=== PATIENT | female | born 1985 | race Caucasian/White ===

== ENCOUNTER 2017-08-05 14:57 | Emergency (ER) | payer SELFPAY ==
[~2017-08-05] VITALS: Ht 177.8 cm; Wt 61.0 kg
[~2017-08-05 14:57] MED LIST: CHLO.12%30 SSP; MMW SSP; PENI500T PO; TRAM50 PO
[2017-08-05 14:58] VITALS: BP 120/83; PULSE 92; RESP 16; TEMP 98.2; O2SAT 100
[2017-08-05 15:35] LABS: BACTERIA, URINE OCC /hpf; BLOOD, URINE SMALL (NEG); COMMENT (UR) CULTURE INDICATED; CULTURE IF INDICATED CULTURE INDICATED; GLUCOSE,URINE NEG (NEG); KETONE, URINE NEG (NEG); NITRITE,URINE NEG (NEG); SQUAMOUS EPITHELIAL CELL URINE 1 /hpf (0-5); URINE COLOR YELLOW (YELLW/STRAW)
[2017-08-05] MEDS ORDERED: MACR100C2 PO (15:38)
[2017-08-05] MEDS ORDERED: PHEN0.4T PO (15:38)
--- NOTE | 2017-08-05 15:44 | PD ---
HPI Chief Complaint: Complaint Time Seen by Provider: 15:30 Travel History International Travel<30 days: No Contact w/Intl Traveler<30days: No Traveled to known affect area: No History of Present Illness HPI 32-year-old female here for evaluation of dysuria. Symptom onset 2 days ago. She reports a burning sensation when she urinates with associated suprapubic pressure. Denies flank pain, nausea or vomiting, fevers or chills. She has had UTIs in the past and this feels similar. She reports that her last menstrual period was 11 days ago. Denies vaginal bleeding or discharge. No other complaints at this time. PFSH Past Medical History Anemia: Yes Asthma: Yes Diminished Hearing: No Reproductive: Yes (ENDOMETRIOSIS) Migraines: Yes ?: Unknown LMP: 07/23/17 Past Surgical History Other Surgery: Yes (SINUS SX) Social History Alcohol Use: No Tobacco Use: Yes (2-3 cigarrettes a day) Substance Use: Yes (Marijuana) Allergies-Medications (Allergen,Severity, Reaction): Coded Allergies: No Known Allergies (Unverified , 05/11/14) Reported Meds & Prescriptions Reported Meds & Active Scripts Active Pyridium (Phenazopyridine HCl) 100 Mg Tab 100 Mg PO Q8HR 3 Days Macrobid (Nitrofurantoin Monoh/Nitrofur Macro) 100 Mg Cap 100 Mg PO BID 7 Days Magic Mouthwash-Diphenhy Formula (Lidocaine/Diphenhydr/Alum/Mg/Simeth) Ml 5-10 Ml SSP 5 TIMES A DAY MAGIC MOUTHWASH CONTAINS 1/3 VISCOUS LIDOCAINE, 1/3 MAALOX, AND 1/3 BENADRYL. Peridex Oral Rinse (Chlorhexidine Gluconate) 0.12 % Eden 15 Ml SSP TID 7 Days Ultram (Tramadol HCl) 50 Mg Tab 1 Tab PO Q6H PRN FOR PAIN Pen Vk (Penicillin V Potassium) 500 Mg Tab 500 Mg PO QID Review of Systems Except as stated in HPI: all other systems reviewed are Neg Physical Exam Narrative GENERAL: Well or stream in no acute distress SKIN: Warm and dry. HEAD: Atraumatic. Normocephalic. EYES: Pupils equal and round. No scleral icterus. No injection or drainage. ENT: No nasal bleeding or discharge. Mucous membranes pink and moist. NECK: Trachea midline. No JVD. CARDIOVASCULAR: Regular rate and rhythm. No murmur appreciated. RESPIRATORY: No accessory muscle use. Clear to auscultation. Breath sounds equal bilaterally. GASTROINTESTINAL: Abdomen soft, mild suprapubic tenderness without guarding, no CVA tenderness MUSCULOSKELETAL: No obvious deformities. NEUROLOGICAL: Awake and alert. No obvious cranial nerve deficits. Motor grossly within normal limits. Normal speech. PSYCHIATRIC: Appropriate mood and affect; insight and judgment normal. Data Data Last Documented VS Vital Signs Date Time Temp Pulse Resp B/P (MAP) Pulse Ox O2 Delivery O2 Flow Rate FiO2 08/05/17 14:58 98.2 92 16 120/83 (95) 100 Room Air Orders Orders Urinalysis - C+S If Indicated (08/05/17 15:10) Urine Culture (08/05/17 15:15) Labs Laboratory Tests Test 08/05/17 15:15 Urine Color YELLOW Urine Turbidity CLOUDY Urine pH 6.0 Urine Specific [place] 1.019 Urine Protein TRACE mg/dL Urine Glucose (UA) NEG mg/dL Urine Ketones NEG mg/dL Urine Occult Blood SMALL Urine Nitrite NEG Urine Bilirubin NEG Urine Urobilinogen LESS THAN 2.0 MG/DL Urine Leukocyte Esterase LARGE Urine RBC 10 /hpf Urine WBC /hpf Urine Squamous Epithelial Cells 1 /hpf Urine Amorphous Sediment RARE Urine Bacteria OCC /hpf Microscopic Urinalysis Comment CULTURE INDICATED MDM Medical Decision Making Medical Screen Exam Complete: Yes Emergency Medical Condition: Yes Medical Record Reviewed: Yes Differential Diagnosis Cystitis, pyelonephritis, urethritis, PID, tubo-ovarian abscess Narrative Course The patient's symptoms and history are consistent with urinary tract infection. Urinalysis was sent in triage however a urine test was not performed. The patient is declining urine test at this time. She reports that her last menstrual period was 11 days ago. She is being discharged with Macrobid and Pyridium. Diagnosis Primary Impression: Urinary tract infection Qualified Codes: N30.01 - Acute cystitis with hematuria Additional Instructions: Medication as prescribed. Stay well hydrated well-nourished, follow-up with primary care, return for any emergent medical conditions. Med/Other Pt SpecificInfo: Prescription(s) given Scripts Phenazopyridine (Pyridium) 100 Mg Tab 100 MG PO Q8HR for Dysuria for 3 Days, TAB 0 Refills Prov: Marilee Jimenez DO 08/05/17 Nitrofurantoin Monohydrate Macrocrystals (Macrobid) 100 Mg Cap 100 MG PO BID for Infection for 7 Days, #14 CAP 0 Refills Prov: Marilee Jimenez 08/05/17 Disposition: 01 DISCHARGE HOME Condition: Stable Jose Traylor Aug 05, 2017 15:44
== END 2017-08-05 16:51 | disposition home or self-care (01) ==
LOC: NEPD 14:57
DX: N30.01 Acute cystitis with hematuria (principal); B96.20 Unspecified Escherichia coli [E. coli] as the cause of diseases classified elsewhere; F17.210 Nicotine dependence, cigarettes, uncomplicated
CPT/HCPCS: 81001; 87077; 87086; 87186; 99284

== ENCOUNTER 2017-09-14 10:41 | Emergency (ER) | payer MEDICAID ==
[~2017-09-14] VITALS: Ht 177.8 cm; Wt 70.0 kg
[~2017-09-14 10:41] MED LIST changes: +MACR100C2 PO; +PHEN0.4T PO
[2017-09-14 10:42] VITALS: BP 138/73; PULSE 89; RESP 20; TEMP 98.2; O2SAT 100
[2017-09-14 11:14] LABS: BACTERIA, URINE OCC /hpf; BLOOD, URINE NEG (NEG); COMMENT (UR) CULTURE INDICATED; CULTURE IF INDICATED CULTURE INDICATED; GLUCOSE,URINE NEG (NEG); KETONE, URINE NEG (NEG); NITRITE,URINE NEG (NEG); SQUAMOUS EPITHELIAL CELL URINE 1 /hpf (0-5); URINE COLOR LIGHT-YELLOW (YELLW/STRAW)
[2017-09-14] MEDS ORDERED: CEPH-460 PO (11:35)
[2017-09-14] MEDS ORDERED: PHEN0.4T PO (11:36)
--- NOTE | 2017-09-14 11:37 | PD ---
HPI Chief Complaint: Complaint Time Seen by Provider: 11:34 Travel History International Travel<30 days: No Contact w/Intl Traveler<30days: No Traveled to known affect area: No History of Present Illness HPI 32-year-old female presents emergency Department with complaint of urinary frequency, urgency, hesitancy, dysuria 3-4 days. Reports being treated for urinary tract infection about a month ago here at [place]. Reports bladder tenderness and pressure. Denies low back pain. Denies fever, vomiting. Denies abdominal pain. Denies vaginal discharge, odor, itch. Last menstrual period at the end of August. Has been taking Azo for symptom management. Symptoms are moderate in severity. Describes as a pressure. No known relieving or aggravating factors. No known allergies. Has no medical complaints. No other modifying factors or associated signs and symptoms. PFSH Past Medical History Anemia: Yes Asthma: Yes Diminished Hearing: No Reproductive: Yes (ENDOMETRIOSIS) Migraines: Yes ?: Unknown LMP: 08/13/17 Past Surgical History Other Surgery: Yes (SINUS SX) Social History Alcohol Use: No Tobacco Use: Yes (2-3 cigarrettes a day) Substance Use: Yes (Marijuana) Allergies-Medications (Allergen,Severity, Reaction): Coded Allergies: No Known Allergies (Verified Adverse Reaction, Unknown, 09/14/17) Reported Meds & Prescriptions Reported Meds & Active Scripts Active Pyridium (Phenazopyridine HCl) 100 Mg Tab 100 Mg PO Q8H PRN 3 Days Keflex (Cephalexin) 500 Mg Cap 500 Mg PO Q12H 7 Days Pyridium (Phenazopyridine HCl) 100 Mg Tab 100 Mg PO Q8HR 3 Days Macrobid (Nitrofurantoin Monoh/Nitrofur Macro) 100 Mg Cap 100 Mg PO BID 7 Days Magic Mouthwash-Diphenhy Formula (Lidocaine/Diphenhydr/Alum/Mg/Simeth) Ml 5-10 Ml SSP 5 TIMES A DAY MAGIC MOUTHWASH CONTAINS 1/3 VISCOUS LIDOCAINE, 1/3 MAALOX, AND 1/3 BENADRYL. Peridex Oral Rinse (Chlorhexidine Gluconate) 0.12 % Eden 15 Ml SSP TID 7 Days Ultram (Tramadol HCl) 50 Mg Tab 1 Tab PO Q6H PRN FOR PAIN Pen Vk (Penicillin V Potassium) 500 Mg Tab 500 Mg PO QID Review of Systems Except as stated in HPI: all other systems reviewed are Neg Physical Exam Narrative GENERAL: Well-nourished, well-developed female patient, in no acute distress; afebrile, nontoxic-appearing SKIN: Warm and dry. No rash. HEAD: Atraumatic. Normocephalic. EYES: Pupils equal and round. No scleral icterus. No injection or drainage. ENT: Mucosa pink and moist. NECK: Trachea midline. CARDIOVASCULAR: Regular rate. RESPIRATORY: No accessory muscle use. GASTROINTESTINAL: Abdomen soft, non-tender, nondistended. Hepatic and splenic margins not palpable. Bowel sounds are active 4 quadrants. Bladder nondistended with tenderness on palpation. MUSCULOSKELETAL: No obvious deformities. No clubbing. No cyanosis. No edema. BACK: Bilateral CVA tenderness NEUROLOGICAL: Awake and alert. Oriented 3. No obvious cranial nerve deficits. Motor grossly within normal limits. Normal speech. Moves all extremities. 5/5 strength to all extremities. PSYCHIATRIC: Appropriate mood and affect; insight and judgment normal. Data Data Last Documented VS Vital Signs Date Time Temp Pulse Resp B/P (MAP) Pulse Ox O2 Delivery O2 Flow Rate FiO2 09/14/17 11:49 09/14/17 10:42 98.2 89 20 100 Orders Orders Urinalysis - C+S If Indicated (09/14/17 10:45) Ed Urine Pregnancytest Poc (09/14/17 10:45) Urine Culture (09/14/17 10:50) Ed Discharge Order (09/14/17 11:45) Gc And Chlamydia Pcr (09/14/17 11:47) Lidocaine 1% Inj (50 Ml) (Xylocaine 1% I (09/14/17 12:00) Ceftriaxone Inj (Rocephin Inj) (09/14/17 12:00) Labs Laboratory Tests Test 09/14/17 10:50 Urine Color LIGHT-YELLOW Urine Turbidity CLEAR Urine pH 7.0 Urine Specific [place] 1.005 Urine Protein NEG mg/dL Urine Glucose (UA) NEG mg/dL Urine Ketones NEG mg/dL Urine Occult Blood NEG Urine Nitrite NEG Urine Bilirubin NEG Urine Urobilinogen LESS THAN 2.0 MG/DL Urine Leukocyte Esterase LARGE Urine RBC 1 /hpf Urine WBC 57 /hpf Urine Squamous Epithelial Cells 1 /hpf Urine Bacteria OCC /hpf Microscopic Urinalysis Comment CULTURE INDICATED MDM Medical Decision Making Medical Screen Exam Complete: Yes Emergency Medical Condition: Yes Medical Record Reviewed: Yes Differential Diagnosis Cystitis, UTI, pyelonephritis Narrative Course 32-year-old female with urinalysis with signs of infection. Urine culture pending. Patient was treated for UTI on August 05. She has bilateral CVA tenderness. Denies vaginal discharge. Patient is afebrile and nontoxic brain. Denies fever, vomiting. Rocephin 1 g IM administered in the ER. Urine chlamydia and gonorrhea ordered and pending. Keflex and Pyridium prescribed for home. Instructed patient to follow up with primary care provider. Patient verbalizes understanding and agreement with treatment plan. Patient is medically cleared and stable for discharge. Discussed reasons to return to the emergency department. Patient agrees with treatment plan. The patients vital signs are stable and the patient is stable for outpatient follow-up and treatment. Patient discharged home, stable and in no acute distress. Diagnosis Primary Impression: UTI (urinary tract infection) Qualified Codes: N39.0 - Urinary tract infection, site not specified Referrals: [facility] Primary Care Physician Patient Instructions: General Instructions, Urinary Tract Infection in Women ( ED) Departure Forms: Tests/Procedures, Work Release Enter return to work date: Sep 15, 2017 Additional Instructions: Take antibiotics as prescribed and complete full course Take Pyridium for bladder spasms: Pyridium will turn your urine bright orange Drink plenty of fluids Maintain good personal hygiene Follow-up with primary care provider Return to the emergency department immediately with worsening of symptoms Med/Other Pt SpecificInfo: Prescription(s) given Scripts Phenazopyridine (Pyridium) 100 Mg Tab 100 MG PO Q8H Y for DYSURIA for 3 Days, #9 TAB 0 Refills Prov: Annabel Brown 09/14/17 Cephalexin (Keflex) 500 Mg Cap 500 MG PO Q12H for Infection for 7 Days, #14 CAP 0 Refills Prov: Annabel Brown 09/14/17 Disposition: 01 DISCHARGE HOME Condition: Stable Annabel Brown Sep 14, 2017 11:37
[2017-09-14] MEDS ORDERED: LIDOCAINE HCL 1% 50 ML VIAL IM ONE (12:00)
[2017-09-15 00:13] LABS: CHLAMYDIA PCR NOT DETECTED (NOT DETECT); NEISSERIA PCR NOT DETECTED (NOT DETECT)
== END 2017-09-14 12:43 | disposition home or self-care (01) ==
LOC: NEPK 10:41
DX: N39.0 Urinary tract infection, site not specified (principal); F17.210 Nicotine dependence, cigarettes, uncomplicated
CPT/HCPCS: 81001; 84703; 87086; 87491; 87591; 96372; 99284; J0696

== ENCOUNTER 2017-10-04 19:23 | Emergency (ER) | payer MEDICAID ==
[~2017-10-04 19:23] MED LIST changes: +CEPH-460 PO
[2017-10-04 19:24] VITALS: BP 130/95; PULSE 104; RESP 16; TEMP 98.7; O2SAT 100
--- NOTE | 2017-10-04 21:24 | PD ---
HPI Chief Complaint: Bleeding Time Seen by Provider: 21:09 Travel History International Travel<30 days: No Contact w/Intl Traveler<30days: No Traveled to known affect area: No History of Present Illness HPI 33-year-old female presents to the emergency department for evaluation of lower abdominal cramping, menstrual bleeding. Patient states she was diagnosed the urinary tract infection here on September 14. She states that since then she has had some intermittent vaginal spotting. However, approximately 3 days ago, she started with heavier vaginal bleeding. She states she is going to 3 pads a day which is abnormal for her. Patient reports history of endometriosis. She is unsure she could be . Patient denies any abnormal vaginal discharge risk of STDs. She's not currently on any prescribed medications. Moderate severity. No exacerbating or alleviating factors. PFSH Past Medical History Anemia: Yes Asthma: Yes Diminished Hearing: No Reproductive: Yes (ENDOMETRIOSIS) Migraines: Yes ?: Unknown Past Surgical History Other Surgery: Yes (SINUS SX) Social History Alcohol Use: No Tobacco Use: Yes (2-3 cigarrettes a day) Substance Use: Yes (Marijuana) Allergies-Medications (Allergen,Severity, Reaction): Coded Allergies: No Known Allergies (Verified Adverse Reaction, Unknown, 10/04/17) Reported Meds & Prescriptions Reported Meds & Active Scripts Active No Active Prescriptions or Reported Medications Review of Systems Except as stated in HPI: all other systems reviewed are Neg Physical Exam Narrative GENERAL: Well-nourished, well-developed female patient, afebrile. SKIN: Focused skin assessment warm/dry. HEAD: Normocephalic. Atraumatic. EYES: No scleral icterus. No injection or drainage. NECK: Supple, trachea midline. No JVD or lymphadenopathy. CARDIOVASCULAR: Regular rate and rhythm without murmurs, gallops, or rubs. RESPIRATORY: Breath sounds equal bilaterally. No accessory muscle use. Lungs sounds are clear to auscultation. GASTROINTESTINAL: Abdomen soft, non-tender, nondistended. MUSCULOSKELETAL: No cyanosis, or edema. BACK: Nontender without obvious deformity. No CVA tenderness. Data Data Last Documented VS Vital Signs Date Time Temp Pulse Resp B/P (MAP) Pulse Ox O2 Delivery O2 Flow Rate FiO2 10/04/17 19:24 98.7 104 16 130/95 (107) 100 Room Air Orders Orders Complete Blood Count With Diff (10/04/17 21:20) Basic Metabolic Panel (Bmp) (10/04/17 21:20) Gc And Chlamydia Pcr (10/04/17 21:20) Wet Prep Profile (10/04/17 21:20) Urinalysis - C+S If Indicated (10/04/17 21:20) Iv Access Insert/Monitor (10/04/17 21:20) Ed Urine Pregnancytest Poc (10/04/17 21:20) Sodium Chlor 0.9% 1000 Ml Inj (Ns 1000 M (10/04/17 21:30) Ketorolac Inj (Toradol Inj) (10/04/17 22:15) Labs Laboratory Tests Test 10/04/17 22:00 10/04/17 22:30 White Blood Count 6.2 TH/MM3 Red Blood Count 3.99 MIL/MM3 Hemoglobin 11.9 GM/DL Hematocrit 35.6 % Mean Corpuscular Volume 89.3 FL Mean Corpuscular Hemoglobin 29.8 PG Mean Corpuscular Hemoglobin Concent 33.3 % Red Cell Distribution Width 14.1 % Platelet Count 257 TH/MM3 Mean Platelet Volume 8.7 FL Neutrophils (%) (Auto) 40.4 % Lymphocytes (%) (Auto) 46.4 % Monocytes (%) (Auto) 6.5 % Eosinophils (%) (Auto) 5.3 % Basophils (%) (Auto) 1.4 % Neutrophils # (Auto) 2.5 TH/MM3 Lymphocytes # (Auto) 2.9 TH/MM3 Monocytes # (Auto) 0.4 TH/MM3 Eosinophils # (Auto) 0.3 TH/MM3 Basophils # (Auto) 0.1 TH/MM3 CBC Comment DIFF FINAL Differential Comment Urine Color YELLOW Urine Turbidity CLEAR Urine pH 7.0 Urine Specific [place] 1.022 Urine Protein NEG mg/dL Urine Glucose (UA) NEG mg/dL Urine Ketones NEG mg/dL Urine Occult Blood LARGE Urine Nitrite NEG Urine Bilirubin NEG Urine Urobilinogen LESS THAN 2.0 MG/DL Urine Leukocyte Esterase NEG Urine RBC 1 /hpf Urine WBC 1 /hpf Urine Squamous Epithelial Cells 1 /hpf Urine Bacteria RARE /hpf Urine Mucus FEW /lpf Microscopic Urinalysis Comment CULT NOT INDICATED Blood Urea Nitrogen 15 MG/DL Creatinine 0.73 MG/DL Random Glucose 87 MG/DL Calcium Level 8.6 MG/DL Sodium Level 138 MEQ/L Potassium Level 4.0 MEQ/L Chloride Level 105 MEQ/L Carbon Dioxide Level 29.6 MEQ/L Anion Gap 3 MEQ/L Estimat Glomerular Filtration Rate 91 ML/MIN Clue Cells (Wet Prep) NONE SEEN Vaginal Trichomonas (Wet Prep) NONE SEEN Vaginal Yeast (Wet Prep) NONE SEEN MDM Medical Decision Making Medical Screen Exam Complete: Yes Emergency Medical Condition: Yes Medical Record Reviewed: Yes Differential Diagnosis Dysmenorrhea versus anemia versus cervicitis versus UTI Narrative Course 32-year-old female presents to the emergency department for evaluation of abdominal cramping, menstrual bleeding. Patient appears well on exam. CBC, BMP , UA, urine test are ordered and pending. Pelvic exam for GC/ chlamydia, wet prep will be done. Patient is given normal saline 1 L IV bolus, Toradol 30 mg IV. UPT is negative. UA is negative for infection. CBC shows no acute abnormality. BMP shows no acute abnormality. Wet prep is negative. Patient is instructed to follow-up with [facility]. She'll be given the information for the [facility]. Patient will be discharged with a prescription for ibuprofen. The patient was discharged in stable condition with instructions, including return instructions and follow up instructions. Diagnosis Primary Impression: Dysmenorrhea Referrals: [facility] call for appointment Patient Instructions: Dysmenorrhea (ED), General Instructions Additional Instructions: Take ibuprofen as instructed as needed with food for pain. Follow-up at [facility]. Return to the emergency department for any acute worsening of symptoms. Med/Other Pt SpecificInfo: Prescription(s) given Scripts Ibuprofen (Ibuprofen) 600 Mg Tab 600 MG PO TID Y for PAIN SCALE 1 TO 10, #21 TAB 0 Refills Prov: Jo Ann Klein 10/04/17 Disposition: 01 DISCHARGE HOME Condition: Stable Jo Ann Klein Oct 04, 2017 21:24
[2017-10-04] MEDS ORDERED: SODIUM CHLOR 0.9% 1000 ML INJ 1,000 ML IV ONE (21:30)
[2017-10-04 22:15] VITALS: BP 139/92; PULSE 90; RESP 16; O2SAT 99
[2017-10-04] MEDS ORDERED: KETOROLAC TROMETHAMINE 30 MG/ML (IVP) VIAL IV PUSH ONE (22:15)
[2017-10-04 22:23] LABS: AUTOMATED NEUTROPHIL # 2.5 TH/MM3 (1.8-7.7); BASOPHIL # 0.1 TH/MM3 (0-0.2); BASOPHIL % 1.4 % (0.0-2.0); EOSINOPHIL # 0.3 TH/MM3 (0-0.4); EOSINOPHIL % 5.3 % (0.0-4.0); HEMATOCRIT 35.6 % (35.0-46.0); HEMO FLAGS DIFF FINAL; LYMPH % 46.4 % (9.0-44.0); LYMPHOCYTE # 2.9 TH/MM3 (1.0-4.8); MEAN CELL VOLUME 89.3 FL (80.0-100.0); MEAN CORPUSCULAR HEMOGLOBIN 29.8 PG (27.0-34.0); MEAN CORPUSCULAR HGB CONC 33.3 % (32.0-36.0); MONO % 6.5 % (0.0-8.0); NEUT % 40.4 % (16.0-70.0); PLATELET COUNT 257 TH/MM3 (150-450); RED BLOOD COUNT 3.99 MIL/MM3 (4.00-5.30); RED CELL DISTRIBUTION WIDTH 14.1 % (11.6-17.2); WHITE BLOOD COUNT 6.2 TH/MM3 (4.0-11.0)
[2017-10-04 22:27] LABS: BACTERIA, URINE RARE /hpf; BLOOD, URINE LARGE (NEG); COMMENT (UR) CULT NOT INDICATED; CULTURE IF INDICATED CULT NOT INDICATED; GLUCOSE,URINE NEG (NEG); KETONE, URINE NEG (NEG); MUCUS URINE FEW /lpf (OCC); NITRITE,URINE NEG (NEG); SQUAMOUS EPITHELIAL CELL URINE 1 /hpf (0-5); URINE COLOR YELLOW (YELLW/STRAW)
[2017-10-04 22:37] LABS: BICARBONATE 29.6 MEQ/L (21.0-32.0)
[2017-10-04] MEDS ORDERED: IBUP-232 PO (22:56)
[2017-10-04 23:17] VITALS: BP 126/88; PULSE 89; RESP 14; O2SAT 100
[2017-10-05 01:08] LABS: CHLAMYDIA PCR NOT DETECTED (NOT DETECT); NEISSERIA PCR NOT DETECTED (NOT DETECT)
== END 2017-10-04 23:30 | disposition home or self-care (01) ==
LOC: NEPC 19:23
DX: N94.6 Dysmenorrhea, unspecified (principal); Z72.0 Tobacco use; Z86.2 Personal history of diseases of the blood and blood-forming organs and certain disorders involving the immune mechanism; Z87.09 Personal history of other diseases of the respiratory system; Z87.42 Personal history of other diseases of the female genital tract; Z86.69 Personal history of other diseases of the nervous system and sense organs
CPT/HCPCS: 80048; 81001; 84703; 85025; 87210; 87491; 87591; 96361; 96374; 99284; J1885; J7030

== ENCOUNTER 2017-10-29 16:37 | Emergency (ER) | payer MEDICAID ==
[~2017-10-29 16:37] MED LIST changes: -CEPH-460 PO; -CHLO.12%30 SSP; +IBUP-232 PO; -MACR100C2 PO; -MMW SSP; -PENI500T PO; -PHEN0.4T PO; -TRAM50 PO
[2017-10-29 16:40] VITALS: BP 118/68; PULSE 109; RESP 16; TEMP 99; O2SAT 100
[2017-10-29 17:25] LABS: AMORPHOUS SEDIMENT, URINE RARE; BACTERIA, URINE FEW /hpf; BILIRUBIN, URINE NEG (NEG); BLOOD, URINE SMALL (NEG); GLUCOSE,URINE NEG (NEG); KETONE, URINE NEG (NEG); MUCUS URINE FEW /lpf (OCC); NITRITE,URINE NEG (NEG); PH, URINE 5.5 (5.0-8.5); RENAL EPITHELIAL CELLS 1 /hpf; SQUAMOUS EPITHELIAL CELL URINE 7 /hpf (0-5); URINE COLOR YELLOW (YELLW/STRAW); URINE LEUKOCYTE ESTERASE LARGE (NEG); WHITE BLOOD CELL CLUMPS OCC
[2017-10-29] MEDS ORDERED: PHEN0.4T PO (17:49)
[2017-10-29] MEDS ORDERED: IBUP1TAB7 PO (17:49)
[2017-10-29] MEDS ORDERED: CEPH-460 PO (17:49)
--- NOTE | 2017-10-29 17:49 | PD ---
HPI Chief Complaint: Complaint Time Seen by Provider: 17:47 Travel History International Travel<30 days: No Contact w/Intl Traveler<30days: No Traveled to known affect area: No History of Present Illness HPI 32-year-old female presents to the emergency department complaining of dysuria and urinary frequency 4 days. Reports urine is concentrated. Denies hematuria. Denies vaginal discharge, odor. Reports pain directly over her bladder. Denies fever, vomiting. Reports bilateral lower back pain. Has not taken any medication or tried any treatments to alleviate her symptoms. Rates pain 7/10. Describes it as a pressure. Worse with urination. No known relieving factors. Reports history of frequent urinary tract infections. Does not have an established primary care provider. No known allergies. Has no other medical complaints. No other modifying factors or associated signs and symptoms. PFSH Past Medical History Anemia: Yes Asthma: Yes Diminished Hearing: No Reproductive: Yes (ENDOMETRIOSIS) Migraines: Yes ?: Unknown LMP: 09/27/2017 Past Surgical History Other Surgery: Yes (SINUS SX) Social History Alcohol Use: No Tobacco Use: Yes (2-3 cigarrettes a day) Substance Use: Yes (Marijuana) Allergies-Medications (Allergen,Severity, Reaction): Coded Allergies: No Known Allergies (Verified Adverse Reaction, Unknown, 10/04/17) Reported Meds & Prescriptions Reported Meds & Active Scripts Active Ibuprofen 800 Mg Tab 800 Mg PO Q6HR PRN Keflex (Cephalexin) 500 Mg Cap 500 Mg PO Q12H 7 Days Pyridium (Phenazopyridine HCl) 100 Mg Tab 100 Mg PO Q8H PRN 3 Days Ibuprofen 600 Mg Tab 600 Mg PO TID PRN Review of Systems Except as stated in HPI: all other systems reviewed are Neg Physical Exam Narrative GENERAL: Well-nourished, well-developed female patient, in no acute distress SKIN: Warm and dry. No rash. HEAD: Atraumatic. Normocephalic. EYES: Pupils equal and round. No scleral icterus. No injection or drainage. ENT: Mucosa pink and moist. NECK: Trachea midline. CARDIOVASCULAR: Regular rate and rhythm. No murmur appreciated. RESPIRATORY: No accessory muscle use. Clear to auscultation. Breath sounds equal bilaterally. GASTROINTESTINAL: Abdomen soft, non-tender, nondistended. Hepatic and splenic margins not palpable. Bowel sounds are active 4 quadrants. Bladder tender and nondistended. MUSCULOSKELETAL: No obvious deformities. No clubbing. No cyanosis. No edema. BACK: Bilateral CVA tenderness; worse on left than right NEUROLOGICAL: Awake and alert. Oriented 3. No obvious cranial nerve deficits. Motor grossly within normal limits. Normal speech. Moves all extremities. 5/5 strength to all extremities. PSYCHIATRIC: Appropriate mood and affect; insight and judgment normal. Data Data Last Documented VS Vital Signs Date Time Temp Pulse Resp B/P (MAP) Pulse Ox O2 Delivery O2 Flow Rate FiO2 10/29/17 16:40 99.0 109 16 118/68 (85) 100 Room Air Orders Orders Urinalysis - C+S If Indicated (10/29/17 16:42) Ed Urine Pregnancytest Poc (10/29/17 16:42) Gc And Chlamydia Pcr (10/29/17 16:42) Urine Culture (10/29/17 16:45) Lidocaine 1% Inj (50 Ml) (Xylocaine 1% I (10/29/17 18:00) Ceftriaxone Inj (Rocephin Inj) (10/29/17 18:00) Ketorolac Inj (Toradol Inj) (10/29/17 18:00) Ed Discharge Order (10/29/17 17:54) Labs Laboratory Tests Test 10/29/17 16:45 Urine Color YELLOW Urine Turbidity CLOUDY Urine pH 5.5 Urine Specific [place] 1.023 Urine Protein 30 mg/dL Urine Glucose (UA) NEG mg/dL Urine Ketones NEG mg/dL Urine Occult Blood SMALL Urine Nitrite NEG Urine Bilirubin NEG Urine Urobilinogen LESS THAN 2.0 MG/DL Urine Leukocyte Esterase LARGE Urine RBC 14 /hpf Urine WBC /hpf Urine WBC Clumps OCC Urine Squamous Epithelial Cells 7 /hpf Urine Renal Epithelial Cells 1 /hpf Urine Amorphous Sediment RARE Urine Bacteria FEW /hpf Urine Mucus FEW /lpf Microscopic Urinalysis Comment CULTURE INDICATED MDM Medical Decision Making Medical Screen Exam Complete: Yes Emergency Medical Condition: Yes Medical Record Reviewed: Yes Differential Diagnosis UTI, pyelonephritis, cystitis Narrative Course 32-year-old female urinalysis is signs of infection. Chlamydia and gonorrhea ordered in triage and is pending. Patient has bilateral CVA tenderness. Afebrile and nontoxic-appearing. Denies fever, vomiting. Patient has frequent urinary tract infections. Toradol and Rocephin administered in the ER. Keflex , Pyridium, ibuprofen prescribed for home. Instructed patient to follow up with primary care provider. Patient verbalizes understanding and agreement with treatment plan. Patient is medically cleared and stable for discharge. Discussed reasons to return to the emergency department. Patient agrees with treatment plan. The patients vital signs are stable and the patient is stable for outpatient follow-up and treatment. Patient discharged home, stable and in no acute distress. Diagnosis Primary Impression: UTI (urinary tract infection) Qualified Codes: N39.0 - Urinary tract infection, site not specified Referrals: [facility] Primary Care Physician Patient Instructions: General Instructions, Urinary Tract Infection in Women ( ED) Additional Instructions: Take antibiotics as prescribed and complete full course Take Pyridium for bladder spasms: Pyridium will turn your urine bright orange Drink plenty of fluids Maintain good personal hygiene Follow-up with primary care provider Return to the emergency department immediately with worsening of symptoms Med/Other Pt SpecificInfo: Prescription(s) given Scripts Ibuprofen (Ibuprofen) 800 Mg Tab 800 MG PO Q6HR Y for PAIN, #30 TAB 0 Refills Prov: Annabel Brown 10/29/17 Cephalexin (Keflex) 500 Mg Cap 500 MG PO Q12H for Infection for 7 Days, #14 CAP 0 Refills Prov: Annabel Brown 10/29/17 Phenazopyridine (Pyridium) 100 Mg Tab 100 MG PO Q8H Y for DYSURIA for 3 Days, #9 TAB 0 Refills Prov: Annabel Brown 10/29/17 Disposition: 01 DISCHARGE HOME Condition: Stable Annabel Brown Oct 29, 2017 17:49
[2017-10-29] MEDS ORDERED: KETOROLAC TROMETHAMINE 60 MG/2 ML (IM) VIAL IM ONE (18:00)
[2017-10-29] MEDS ORDERED: LIDOCAINE HCL 1% 50 ML VIAL IM ONE (18:00)
== END 2017-10-29 18:39 | disposition home or self-care (01) ==
LOC: NEPD 16:37
DX: N39.0 Urinary tract infection, site not specified (principal); B96.20 Unspecified Escherichia coli [E. coli] as the cause of diseases classified elsewhere; F17.210 Nicotine dependence, cigarettes, uncomplicated
CPT/HCPCS: 81001; 84703; 87077; 87086; 87186; 87491; 87591; 96372; 99284; J0696; J1885

== ENCOUNTER 2017-11-30 00:15 | Emergency (ER) | payer MEDICAID ==
[~2017-11-30] VITALS: Ht 180.3 cm; Wt 64.9 kg
[~2017-11-30 00:15] MED LIST changes: +CEPH-460 PO; +IBUP1TAB7 PO; +PHEN0.4T PO
[2017-11-30 00:20] VITALS: PULSE 105; RESP 18; TEMP 98.2; O2SAT 100
[2017-11-30 00:27] VITALS: BP 130/88
[2017-11-30 00:45] LABS: BILIRUBIN, URINE NEG (NEG); BLOOD, URINE SMALL (NEG); GLUCOSE,URINE NEG (NEG); KETONE, URINE TRACE mg/dL (NEG); NITRITE,URINE NEG (NEG); URINE LEUKOCYTE ESTERASE LARGE (NEG)
[2017-11-30 01:00] LABS: URINE COLOR YELLOW (YELLW/STRAW)
[2017-11-30 01:01] LABS: WBC, URINE 100-200 /hpf (0-5); WHITE BLOOD CELL CLUMPS MOD
[2017-11-30] MEDS ORDERED: CIPR-9 PO (02:27)
--- NOTE | 2017-11-30 02:29 | PD ---
HPI Chief Complaint: Complaint Time Seen by Provider: 02:18 Travel History International Travel<30 days: No Contact w/Intl Traveler<30days: No Traveled to known affect area: No History of Present Illness HPI The patient is a 32-year-old female that complains of frequency, dysuria and urgency for the last few days. She gets frequent urinary tract infections. She was on Keflex for 29 October 2 the third of this month. She also uses Azo and Pyridium. She prefers Azo since it is less expensive. She denies any fever , nausea, vomiting and has only very minimal flank pain. She states there is no possibility of . PFSH Past Medical History Anemia: Yes Asthma: Yes Diminished Hearing: No Genitourinary: Yes (FREQUENT UTI'S) Reproductive: Yes (ENDOMETRIOSIS) Migraines: Yes Tetanus Vaccination: < 5 Years Influenza Vaccination: No ?: Not LMP: 11/13/17 Past Surgical History Other Surgery: Yes (SINUS SX) Social History Alcohol Use: No Tobacco Use: Yes (2-3 cigarrettes a day) Substance Use: Yes (Marijuana) Allergies-Medications (Allergen,Severity, Reaction): Coded Allergies: No Known Allergies (Verified Adverse Reaction, Unknown, 10/04/17) Reported Meds & Prescriptions Reported Meds & Active Scripts Active No Active Prescriptions or Reported Medications Review of Systems Except as stated in HPI: all other systems reviewed are Neg Physical Exam Narrative GENERAL: The patient is alert, oriented 3 and minimal apparent distress with her urinary symptoms. Her vital signs show heart rate of 105 but otherwise normal. SKIN: Focused skin assessment warm/dry. HEAD: Atraumatic. Normocephalic. EYES: Pupils equal and round. No scleral icterus. No injection or drainage. ENT: No nasal bleeding or discharge. Mucous membranes pink and moist. NECK: Trachea midline. No JVD. CARDIOVASCULAR: Regular rate and rhythm. No murmur appreciated. RESPIRATORY: No accessory muscle use. Clear to auscultation. Breath sounds equal bilaterally. GASTROINTESTINAL: Abdomen soft, with tenderness to direct palpation in the midline suprapubic area, nondistended. Hepatic and splenic margins not palpable. No guarding or rebound is present. The patient has only extremely minimal tenderness over the bilateral flanks. MUSCULOSKELETAL: No obvious deformities. No clubbing. No cyanosis. No edema. NEUROLOGICAL: Awake and alert. No obvious cranial nerve deficits. Motor grossly within normal limits. Normal speech. PSYCHIATRIC: Appropriate mood and affect; insight and judgment normal. Data Data Last Documented VS Vital Signs Date Time Temp Pulse Resp B/P (MAP) Pulse Ox O2 Delivery O2 Flow Rate FiO2 11/30/17 00:27 130/88 (102) 11/30/17 00:20 98.2 105 18 100 Orders Orders Urinalysis - C+S If Indicated (11/30/17 00:22) Ed Urine Pregnancytest Poc (11/30/17 00:22) Urine Culture (11/30/17 00:35) Labs Laboratory Tests Test 11/30/17 00:35 Urine Color YELLOW Urine Turbidity CLOUDY Urine pH 6.0 Urine Specific [place] 1.022 Urine Protein TRACE mg/dL Urine Glucose (UA) NEG mg/dL Urine Ketones TRACE mg/dL Urine Occult Blood SMALL Urine Nitrite NEG Urine Bilirubin NEG Urine Leukocyte Esterase LARGE Urine RBC 4-9 /hpf Urine WBC 100-200 /hpf Urine WBC Clumps MOD Urine Squamous Epithelial Cells 6-8 /hpf Microscopic Urinalysis Comment CULTURE INDICATED MDM Medical Decision Making Medical Screen Exam Complete: Yes Emergency Medical Condition: Yes Medical Record Reviewed: Yes Interpretation(s) The urine shows cloudy turbidity, trace ketones, small blood, large leukocyte Estrace with 102 100 white cells and moderate white cell clumping's and culture is indicated. The urine test is negative. Differential Diagnosis Cystitis, pyelonephritis, interstitial cystitis, PID Narrative Course The patient does not have the symptoms of pyelonephritis. She does have symptoms of cystitis and will be given Cipro. She has no insurance and needs something free/inexpensive at [facility]. Diagnosis Primary Impression: Cystitis Additional Instructions: The Cipro is one tablet twice daily for 10 days. Drink plenty of liquids to establish a good urine flow across your kidneys. We recommend a urologist to follow up with because of the frequency of your urinary infections. Med/Other Pt SpecificInfo: Prescription(s) given Scripts Ciprofloxacin (Cipro) 500 Mg Tab 500 MG PO BID for Infection for 10 Days, #20 TAB 0 Refills Prov: Andreas Vallecillo MD 11/30/17 Disposition: 01 DISCHARGE HOME Condition: Stable Andreas Vallecillo MD Nov 30, 2017 02:29
[2017-11-30 02:42] VITALS: BP 132/85; TEMP 98.4
== END 2017-11-30 02:43 | disposition home or self-care (01) ==
LOC: PHED 00:15
DX: N30.90 Cystitis, unspecified without hematuria (principal); B96.20 Unspecified Escherichia coli [E. coli] as the cause of diseases classified elsewhere; D64.9 Anemia, unspecified; J45.909 Unspecified asthma, uncomplicated; F17.210 Nicotine dependence, cigarettes, uncomplicated
CPT/HCPCS: 81001; 84703; 87077; 87086; 87186; 99283

== ENCOUNTER 2017-12-31 11:21 | Emergency (ER) | payer SELFPAY ==
[~2017-12-31] VITALS: Ht 180.3 cm; Wt 67.3 kg
[~2017-12-31 11:21] MED LIST changes: -CEPH-460 PO; +CIPR-9 PO; -IBUP-232 PO; -IBUP1TAB7 PO; -PHEN0.4T PO
[2017-12-31 11:26] VITALS: BP 136/67; PULSE 102; RESP 16; TEMP 98.2; O2SAT 100
[2017-12-31 11:36] LABS: BILIRUBIN, URINE NEG (NEG); BLOOD, URINE NEG (NEG); GLUCOSE,URINE NEG (NEG); KETONE, URINE NEG (NEG); NITRITE,URINE NEG (NEG); PH, URINE 6.5 (5.0-8.5); URINE LEUKOCYTE ESTERASE NEG (NEG)
[2017-12-31 11:43] LABS: SQUAMOUS EPITHELIAL CELL URINE 0-5 /hpf (0-5); URINE COLOR STRAW (YELLW/STRAW); WBC, URINE 0-2 /hpf (0-5)
--- NOTE | 2017-12-31 12:00 | PD ---
HPI Chief Complaint: Cashier Problem/Complaint Time Seen by Provider: 11:53 Travel History International Travel<30 days: No Contact w/Intl Traveler<30days: No Traveled to known affect area: No History of Present Illness HPI This 32-year-old female complaining of vaginal bleeding. Believe she is . Her last period was November 13. She had a positive home test. She does have a history of endometriosis and has had recurrent urinary tract infections. She is having some lower abdominal pain. This is her fourth . She had one miscarriage and has had 2 live births. PFSH Past Medical History Anemia: Yes Asthma: Yes Diminished Hearing: No Genitourinary: Yes (FREQUENT UTI'S) Reproductive: Yes (ENDOMETRIOSIS) Migraines: Yes ?: LMP: 11/13/17 Past Surgical History Other Surgery: Yes (SINUS SX) Social History Alcohol Use: No Tobacco Use: Yes (2-3 cigarrettes a day) Substance Use: Yes (Marijuana) Allergies-Medications (Allergen,Severity, Reaction): Coded Allergies: No Known Allergies (Verified Adverse Reaction, Unknown, 12/31/17) Reported Meds & Prescriptions Reported Meds & Active Scripts Active No Active Prescriptions or Reported Medications Review of Systems Except as stated in HPI: all other systems reviewed are Neg General / Constitutional: No: Fever, Chills Eyes: No: Diploplia, Blurred Vision HENT: No: Headaches Cardiovascular: No: Chest Pain or Discomfort Respiratory: No: Cough Gastrointestinal: No: Vomiting Genitourinary: Positive: Vaginal Bleeding Musculoskeletal: No: Myalgias, Arthralgias Neurologic: No: Weakness, Dizziness Psychiatric: No: Anxiety Hematologic/Lymphatic: No: Easy Bruising Physical Exam Narrative GENERAL: Well-developed female SKIN: Focused skin assessment warm/dry. HEAD: Atraumatic. Normocephalic. EYES: Pupils equal and round. No scleral icterus. No injection or drainage. ENT: No nasal bleeding or discharge. Mucous membranes pink and moist. NECK: Trachea midline. No JVD. CARDIOVASCULAR: Regular rate and rhythm. No murmur appreciated. RESPIRATORY: No accessory muscle use. Clear to auscultation. Breath sounds equal bilaterally. GASTROINTESTINAL: Abdomen soft, non-tender, nondistended. Hepatic and splenic margins not palpable. MEMBER SERVICES COORDINATOR: Cervical loss is closed. No bleeding at this time uterus 12 week size. No adnexal masses MUSCULOSKELETAL: No obvious deformities. No clubbing. No cyanosis. No edema. NEUROLOGICAL: Awake and alert. No obvious cranial nerve deficits. Motor grossly within normal limits. Normal speech. PSYCHIATRIC: Appropriate mood and affect; insight and judgment normal. Data Data Last Documented VS Vital Signs Date Time Temp Pulse Resp B/P (MAP) Pulse Ox O2 Delivery O2 Flow Rate FiO2 12/31/17 13:48 82 16 105/62 (76) 100 Room Air 12/31/17 11:26 98.2 Orders Orders Urinalysis - C+S If Indicated (12/31/17 11:28) Ed Urine Pregnancytest Poc (12/31/17 11:28) Beta Hcg (Quant/Titer) (12/31/17 11:58) Complete Blood Count With Diff (12/31/17 11:58) Complete Rh (12/31/17 11:58) Us Pelvis (Ques Preg/Ectopic) (12/31/17 ) Labs Laboratory Tests Test 12/31/17 11:30 12/31/17 12:15 Urine Collection Type CLEAN CATCH Urine Color STRAW Urine Turbidity CLEAR Urine pH 6.5 Urine Specific [place] 1.016 Urine Protein NEG mg/dL Urine Glucose (UA) NEG mg/dL Urine Ketones NEG mg/dL Urine Occult Blood NEG Urine Nitrite NEG Urine Bilirubin NEG Urine Leukocyte Esterase NEG Urine WBC 0-2 /hpf Urine Squamous Epithelial Cells 0-5 /hpf Microscopic Urinalysis Comment CULT NOT INDICATED Urine Collection Time 11:30 White Blood Count 6.6 TH/MM3 Red Blood Count 3.73 MIL/MM3 Hemoglobin 10.6 GM/DL Hematocrit 32.7 % Mean Corpuscular Volume 87.5 FL Mean Corpuscular Hemoglobin 28.4 PG Mean Corpuscular Hemoglobin Concent 32.5 % Red Cell Distribution Width 13.4 % Platelet Count 241 TH/MM3 Mean Platelet Volume 7.9 FL Neutrophils (%) (Auto) 69.9 % Lymphocytes (%) (Auto) 21.2 % Monocytes (%) (Auto) 6.2 % Eosinophils (%) (Auto) 1.9 % Basophils (%) (Auto) 0.8 % Neutrophils # (Auto) 4.6 TH/MM3 Lymphocytes # (Auto) 1.4 TH/MM3 Monocytes # (Auto) 0.4 TH/MM3 Eosinophils # (Auto) 0.1 TH/MM3 Basophils # (Auto) 0.1 TH/MM3 CBC Comment DIFF FINAL Differential Comment Human Chorionic Gonadotropin, Quant 80235 MIU/ML [facility] Medical Decision Making Medical Screen Exam Complete: Yes Emergency Medical Condition: Yes Medical Record Reviewed: Yes Differential Diagnosis Differential includes threatened AB, incomplete AB, ectopic Narrative Course Her beta titer is 82,575. Ultrasound shows a 7 week 2 day intrauterine which is viable. She is Rh+ Diagnosis Primary Impression: Threatened miscarriage Scripts No Active Prescriptions or Reported Meds Disposition: DISCHARGE HOME Condition: Stable Golden Hu MD Dec 31, 2017 12:00
[2017-12-31 12:26] LABS: AUTOMATED NEUTROPHIL # 4.6 TH/MM3 (1.8-7.7); BASOPHIL # 0.1 TH/MM3 (0-0.2); BASOPHIL % 0.8 % (0.0-2.0); EOSINOPHIL # 0.1 TH/MM3 (0-0.4); EOSINOPHIL % 1.9 % (0.0-4.0); HEMATOCRIT 32.7 % (35.0-46.0); HEMOGLOBIN 10.6 GM/DL (11.6-15.3); LYMPH % 21.2 % (9.0-44.0); LYMPHOCYTE # 1.4 TH/MM3 (1.0-4.8); MEAN CELL VOLUME 87.5 FL (80.0-100.0); MEAN CORPUSCULAR HEMOGLOBIN 28.4 PG (27.0-34.0); MEAN CORPUSCULAR HGB CONC 32.5 % (32.0-36.0); MEAN PLATELET VOLUME 7.9 FL (7.0-11.0); MONO % 6.2 % (0.0-8.0); MONOCYTE # 0.4 TH/MM3 (0-0.9); NEUT % 69.9 % (16.0-70.0); PLATELET COUNT 241 TH/MM3 (150-450); RED BLOOD COUNT 3.73 MIL/MM3 (4.00-5.30); RED CELL DISTRIBUTION WIDTH 13.4 % (11.6-17.2); WHITE BLOOD COUNT 6.6 TH/MM3 (4.0-11.0)
[2017-12-31 13:48] VITALS: BP 105/62; PULSE 82; RESP 16; O2SAT 100
--- NOTE | 2017-12-31 15:38 | RADRPT ---
EXAM DATE/TIME: 12/31/2017 14:34 [facility] COMPARISON: No previous studies available for comparison. INDICATIONS : Vaginal bleeding. LAB(S): Beta-hC,575 MEDICAL HISTORY : Eye problems. Asthma. Emometriosis. UTI. SURGICAL HISTORY : None. ENCOUNTER: Initial ACUITY: 2 days PAIN SCORE: 1/10 LOCATION: Bilateral pelvis MEASUREMENTS: UTERUS: 11.2 x 6.7 x 8.9 cm ENDOMETRIAL STRIPE: >20 mm RIGHT OVARY: 2.9 x 1.8 x 2.6 cm LEFT OVARY: 3.6 x 1.9 x 2.8 cm FREE FLUID: No CROWN RUMP LENGTH: 1.1 cm = 7 WKS 2 DAYS FHR: 159 BPM FINDINGS: UTERUS: The myometrium has homogeneous echotexture without mass. There is a gestational sac in the endometri al cavity measuring 3.2 x 4.4 x 1.3 cm. Embryo is identified measuring 1.13 cm indicating a gestation al age of 7 weeks and 2 days. M-mode Doppler documents a heart rate of 159 beats per minute. RIGHT OVARY: Ovary contains no mass or significant cystic lesion. LEFT OVARY: Ovary contains no mass or significant cystic lesion. MISCELLANEOUS: No free fluid. CONCLUSION: 1. Findings consistent with a 7 week 6 day intrauterine . Normal heart rate is documen caprice. No acute finding is identified. 2. Ovaries have a normal appearance and there is no free fluid. Fermin Matamoros MD on December 31, 2017 at 15:35 Board Certified Radiologist. This report was verified electronically.
== END 2017-12-31 15:56 | disposition home or self-care (01) ==
LOC: PHED 11:21
DX: O20.0 Threatened abortion (principal); J45.909 Unspecified asthma, uncomplicated; F17.210 Nicotine dependence, cigarettes, uncomplicated; Z3A.01 Less than 8 weeks gestation of pregnancy; Z87.440 Personal history of urinary (tract) infections
CPT/HCPCS: 76700; 81001; 84702; 84703; 85025; 86901

== ENCOUNTER 2018-02-06 14:44 | Emergency (ER) | payer SELFPAY ==
[~2018-02-06] VITALS: Ht 180.3 cm; Wt 70.8 kg
[2018-02-06 14:47] VITALS: BP 112/60; PULSE 88; RESP 16; TEMP 98.4; O2SAT 99
[2018-02-06] MEDS ORDERED: ACETAMINOPHEN 325 MG TAB PO ONE (15:15)
[2018-02-06 15:26] LABS: BILIRUBIN, URINE NEG (NEG); BLOOD, URINE NEG (NEG); GLUCOSE,URINE NEG (NEG); KETONE, URINE TRACE mg/dL (NEG); NITRITE,URINE NEG (NEG); URINE COLOR YELLOW (YELLW/STRAW); URINE LEUKOCYTE ESTERASE NEG (NEG)
--- NOTE | 2018-02-06 15:26 | PD ---
HPI Chief Complaint: Related Problem Time Seen by Provider: 14:53 Travel History International Travel<30 days: No Contact w/Intl Traveler<30days: No Traveled to known affect area: No History of Present Illness HPI The patient is a 33-year-old female who is a Ab1 who is currently 12 weeks via ultrasound, per her report. The patient cannot recall her last menstrual cycle, states she had an ultrasound performed 5 weeks ago which revealed she was 7 weeks . The patient has an appointment on Friday to she complains of some lower abdominal cramping and spotting schedule an appointment to see an hydrogenation still operator on an outpatient basis. For the last 12 hours. She denies any dysuria, frequency, urgency. Patient does not know her blood type. She denies any acute nausea or vomiting. Symptoms are moderate. PFSH Past Medical History Anemia: Yes Asthma: Yes Diminished Hearing: No Genitourinary: Yes (Frequent UTI'S) Reproductive: Yes (Endometriosis ) Respiratory: Yes (ASTHMA) Migraines: Yes Tetanus Vaccination: > 5 Years Influenza Vaccination: No ?: LMP: 12 weeks Past Surgical History Other Surgery: Yes (Sinus) Social History Alcohol Use: No Tobacco Use: No Substance Use: Yes (Marijuana) Allergies-Medications (Allergen,Severity, Reaction): Coded Allergies: No Known Allergies (Verified Adverse Reaction, Unknown, 02/06/18) Reported Meds & Prescriptions Reported Meds & Active Scripts Active No Active Prescriptions or Reported Medications Review of Systems Except as stated in HPI: all other systems reviewed are Neg General / Constitutional: No: Fever Cardiovascular: No: Chest Pain or Discomfort Respiratory: No: Shortness of Breath Gastrointestinal: No: Nausea, Vomiting, Abdominal Pain Genitourinary: Positive: Pelvic Pain (Cramping), Vaginal Bleeding, No: Urgency , Frequency, Dysuria, Hematuria Skin: No Rash Physical Exam Narrative GENERAL: Awake, alert, pleasant 33-year-old female who appears her stated age and is in no acute respiratory distress. SKIN: Focused skin assessment warm/dry. HEAD: Atraumatic. Normocephalic. EYES: No injection or drainage NECK: Trachea midline. No JVD. GASTROINTESTINAL: Abdomen soft, non-tender, nondistended. No rebound tenderness , guarding, rigidity. Back: No CVA tenderness. Genitourinary: I offered to perform exam, deferred by patient. MUSCULOSKELETAL: No obvious deformities. No clubbing. No cyanosis. No edema. NEUROLOGICAL: Awake and alert. No obvious cranial nerve deficits. Motor grossly within normal limits. Normal speech. PSYCHIATRIC: Appropriate mood and affect; insight and judgment normal. Data Data Last Documented VS Vital Signs Date Time Temp Pulse Resp B/P (MAP) Pulse Ox O2 Delivery O2 Flow Rate FiO2 02/06/18 14:47 98.4 88 16 112/60 (77) 99 Orders Orders Urinalysis - C+S If Indicated (02/06/18 15:03) Acetaminophen (Tylenol) (02/06/18 15:15) Ed Discharge Order (02/06/18 15:42) Labs Laboratory Tests Test 02/06/18 15:15 Urine Collection Type CLEAN CATCH Urine Color YELLOW Urine Turbidity CLEAR Urine pH 6.0 Urine Specific [place] 1.025 Urine Protein NEG mg/dL Urine Glucose (UA) NEG mg/dL Urine Ketones TRACE mg/dL Urine Occult Blood NEG Urine Nitrite NEG Urine Bilirubin NEG Urine Urobilinogen 0.2 MG/DL Urine Leukocyte Esterase NEG Urine RBC 0-3 /hpf Urine WBC 0-2 /hpf Urine Squamous Epithelial Cells 0-5 /hpf Microscopic Urinalysis Comment CULT NOT INDICATED Urine Collection Time 15:[address] [facility] Medical Decision Making Medical Screen Exam Complete: Yes Emergency Medical Condition: Yes Medical Record Reviewed: Yes Differential Diagnosis Differential diagnosis includes threatened AB, incomplete AB, UTI, vaginal bleeding, cervicitis, PID, vaginitis Narrative Course I performed a bedside ultrasound with female nurse at bedside. Ultrasound with curvilinear probe reveals an IUP, visible fetus with positive heart tones. The patient was shown the ultrasound I was it was performed real time. I reviewed the EMR, patient's blood type is A positive. UA was sent to lab. The patient was administered Tylenol 650 mg orally. Procedures Procedure Narrative A bedside ultrasound was performed using a curvilinear probe which revealed an IUP, positive movement and positive heart tones. Positive heart tones with rate greater than 120. The patient was shown the ultrasound as it was performed real time. The patient tolerated the procedure without difficulty. There was no visible complications. Diagnosis Primary Impression: Vaginal bleeding in Patient Instructions: General Instructions Additional Instructions: Continue taking vitamins. No sex for 1 week. Bedrest. Follow-up with an hydrogenation still operator. No heavy lifting. Med/Other Pt SpecificInfo: No Change to Meds Scripts No Active Prescriptions or Reported Meds Disposition: 01 DISCHARGE HOME Condition: Stable Nii Thornton MD Feb 06, 2018 15:26
[2018-02-06 15:28] LABS: RBC, URINE 0-3 /hpf (0-3); WBC, URINE 0-2 /hpf (0-5)
[2018-02-06 15:29] LABS: SQUAMOUS EPITHELIAL CELL URINE 0-5 /hpf (0-5)
== END 2018-02-06 16:00 | disposition home or self-care (01) ==
LOC: PHED 14:44
DX: O46.91 Antepartum hemorrhage, unspecified, first trimester (principal); O99.011 Anemia complicating pregnancy, first trimester; O99.511 Diseases of the respiratory system complicating pregnancy, first trimester; J45.909 Unspecified asthma, uncomplicated; Z87.440 Personal history of urinary (tract) infections; Z3A.12 12 weeks gestation of pregnancy
CPT/HCPCS: 81001; 99283

== ENCOUNTER 2018-02-21 18:23 | Emergency (ER) | payer OTHER ==
[~2018-02-21] VITALS: Ht 180.3 cm; Wt 71.0 kg
[2018-02-21 18:30] VITALS: BP 112/53; PULSE 89; RESP 16; TEMP 98.2; O2SAT 98
[2018-02-21 18:57] LABS: BILIRUBIN, URINE NEG (NEG); BLOOD, URINE TRACE (NEG); GLUCOSE,URINE NEG (NEG); KETONE, URINE NEG (NEG); NITRITE,URINE NEG (NEG); PH, URINE 7.5 (5.0-8.5); URINE COLOR YELLOW (YELLW/STRAW); URINE LEUKOCYTE ESTERASE SMALL (NEG)
--- NOTE | 2018-02-21 19:11 | PD ---
HPI Chief Complaint: Complaint Time Seen by Provider: 19:04 Travel History International Travel<30 days: No Contact w/Intl Traveler<30days: No Traveled to known affect area: No History of Present Illness HPI 33-year-old female presents to the emergency department for complaint of suprapubic pressure and dysuria. Patient states she has had urinary frequency approximately 17 times of urinating today. Patient is approximately 15 weeks according to her estimate based on ultrasound performed at [facility] last week at which time she was told that she was approximately 14 weeks . Patient's last menstrual period was in November. Patient states she has irregular menses and a history of endometriosis. Patient is reportedly 4 para 2 ab 1. Patient is not taking any vitamins. Patient is on no medications. Patient rates her discomfort 7/10 intensity. Patient denies any vaginal bleeding or discharge. Patient denies any fever or chills. No report of nausea or vomiting. No report of anorexia. Patient reports frequent recurrent urinary tract infections. Patient was reportedly seen here 02/06/18 and was reportedly 12 weeks at that time a bedside ultrasound was performed and showed a viable single intrauterine . At that time she had no evidence of bacteriuria or urinary tract infection but was complaining of lower abdominal/pelvic pain. Patient by review is a positive blood type. Patient is taken no medications for symptom relief. Patient states she does not drink alcohol does not smoke cigarettes but did use marijuana yesterday. Patient also has history of asthma and sinus disease without recent exacerbation. PFSH Past Medical History Narrative Medical Anemia asthma sinusitis endometriosis Ab1; marijuana use; nursing notes reviewed Anemia: Yes Asthma: Yes Diminished Hearing: No Genitourinary: Yes (Frequent UTI'S) Reproductive: Yes (Endometriosis ) Respiratory: Yes (ASTHMA) Migraines: Yes ?: LMP: 15 WEEKS : 4 Para: 2 Miscarriage: 1 Past Surgical History Other Surgery: Yes (Sinus) Social History Alcohol Use: No Tobacco Use: No Substance Use: Yes (Marijuana YESTERDAY) Allergies-Medications (Allergen,Severity, Reaction): Coded Allergies: No Known Allergies (Verified Adverse Reaction, Unknown, 02/21/18) Reported Meds & Prescriptions Reported Meds & Active Scripts Active Keflex (Cephalexin) 500 Mg Capsule 500 Mg PO Q6H 7 Days Review of Systems Except as stated in HPI: all other systems reviewed are Neg General / Constitutional: No: Fever, Chills HENT: No: Congestion Cardiovascular: No: Chest Pain or Discomfort Respiratory: No: Shortness of Breath Gastrointestinal: Positive: Abdominal Pain (suprapubic pressure), No: Nausea, Vomiting Genitourinary: Positive: Urgency, Frequency, Dysuria, No: Hematuria, Discharge , Vaginal Bleeding Musculoskeletal: No: Myalgias, Arthralgias Skin: No Rash Neurologic: No: Weakness Psychiatric: No: Anxiety Hematologic/Lymphatic: No: Lymph Node Enlargement Physical Exam Narrative GENERAL: Well-developed well-nourished female no acute distress no respiratory distress SKIN: Warm and dry. HEAD: Normocephalic. EYES: No scleral icterus. No injection or drainage. NECK: Supple, trachea midline. No JVD or lymphadenopathy. CARDIOVASCULAR: Regular rate and rhythm without murmurs, gallops, or rubs. RESPIRATORY: Breath sounds equal bilaterally. No accessory muscle use. GASTROINTESTINAL: Abdomen soft, tender to palpation bilateral lower quadrant and suprapubic distribution without guarding or rebound, nondistended. Pelvic exam: Normal external exam no redness no induration no blood; speculum exam scant white mucus cervical loss closed no clots no tissue no blood; bimanual exam no cervical motion tenderness no adnexal mass or tenderness. MUSCULOSKELETAL: No cyanosis, or edema. BACK: Nontender without obvious deformity. No CVA tenderness. Data Data Last Documented VS Vital Signs Date Time Temp Pulse Resp B/P (MAP) Pulse Ox O2 Delivery O2 Flow Rate FiO2 02/21/18 19:46 98.1 83 16 115/70 (85) 100 Room Air Orders Orders Urinalysis - C+S If Indicated (02/21/18 18:32) Urine Culture (02/21/18 18:40) Cephalexin (Keflex) (02/21/18 19:30) Acetaminophen (Tylenol) (02/21/18 19:30) Wet Prep Profile (02/21/18 19:25) Gc And Chlamydia Pcr (02/21/18 19:25) ^ Saline Lock (02/21/18 19:25) Sodium Chlor 0.9% 1000 Ml Inj (Ns 1000 M (02/21/18 19:30) Ed Discharge Order (02/21/18 19:57) Labs Laboratory Tests Test 02/21/18 18:40 02/21/18 19:30 Urine Collection Type CLEAN CATCH Urine Color YELLOW Urine Turbidity CLOUDY Urine pH 7.5 Urine Specific [place] 1.015 Urine Protein TRACE mg/dL Urine Glucose (UA) NEG mg/dL Urine Ketones NEG mg/dL Urine Occult Blood TRACE Urine Nitrite NEG Urine Bilirubin NEG Urine Urobilinogen 0.2 MG/DL Urine Leukocyte Esterase SMALL Urine RBC 4-9 /hpf Urine WBC 50-99 /hpf Urine WBC Clumps MOD Urine Squamous Epithelial Cells 0-5 /hpf Urine Bacteria FEW /hpf Microscopic Urinalysis Comment CULTURE INDICATED Clue Cells (Wet Prep) NONE SEEN Vaginal Trichomonas (Wet Prep) NONE SEEN Vaginal Yeast (Wet Prep) NONE SEEN MDM Medical Decision Making Medical Screen Exam Complete: Yes Emergency Medical Condition: Yes Medical Record Reviewed: Yes Interpretation(s) Urinalysis: Positive for red blood cells white blood cells clumped white blood cells bacteria; culture indicated Wet prep: Negative Differential Diagnosis UTI, pelvic pain, round ligament pain, threatened AB, also consider PID cervicitis atypical appendicitis Narrative Course Patient with recent ultrasound to [facility] emergency department identifying intrauterine 02/06/18 presents with urinary frequency urgency and dysuria 1 day without report of fever chills nausea vomiting or anorexia; no vaginal discharge or vaginal bleeding. Urine specimen collected and sent for resulting with history of frequent recurrent urinary tract infections. Patient identified to have abnormal urinalysis with white blood cells clumped white blood cells bacteria and cultures indicated; pelvic exam no cervical motion tenderness scant mucus specimen collected for wet prep and PCR GC and Chlamydia. After informed verbal consent with nurse at bedside bedside ultrasound performed by ok with curvilinear probe identifies single viable intrauterine with active fetus and heart rate of 144. Patient given oral dose of Keflex and Tylenol. Patient given bolus of normal saline. Patient was amatory to the bathroom without antalgic movement. Patient is stable for outpatient management. Procedures Procedure Narrative After informed verbal consent with nurse at bedside; using curvilinear probe single intrauterine identified; active fetus with heart rate 144 ; patient was shown imaging of fetus during ultrasound; patient tolerated procedure well; no noted complications. Diagnosis Primary Impression: UTI (urinary tract infection) Qualified Codes: N39.0 - Urinary tract infection, site not specified Additional Impression: Qualified Codes: Z3A.15 - 15 weeks gestation of Referrals: Editor Index 2 days Patient Instructions: General Instructions Departure Forms: Tests/Procedures, Work Release Special Instructions: no work x 1 day Additional Instructions: Increase fluid hydration Take acetaminophen/Tylenol every 4-6 hours as needed for fever 100.4F or greater or for discomfort Follow-up with your ARCH PAD CEMENTER on Friday Return to the emergency department for pain fever vaginal bleeding vomiting or any concerns No work 1 day Complete course of antibiotic as prescribed Med/Other Pt SpecificInfo: Prescription(s) given Scripts Cephalexin (Keflex) 500 Mg Capsule 500 MG PO Q6H for Infection for 7 Days, #28 CAP 0 Refills Prov: Yesica Estes MD 02/21/18 Disposition: 01 DISCHARGE HOME Condition: Stable Yesica Estes MD Feb 21, 2018 19:11
[2018-02-21 19:14] LABS: BACTERIA, URINE FEW /hpf; SQUAMOUS EPITHELIAL CELL URINE 0-5 /hpf (0-5); WHITE BLOOD CELL CLUMPS MOD
[2018-02-21] MEDS ORDERED: ACETAMINOPHEN 325 MG TAB PO ONE (19:30)
[2018-02-21] MEDS ORDERED: SODIUM CHLOR 0.9% 1000 ML INJ 1,000 ML IV ONE (19:30)
[2018-02-21] MEDS ORDERED: CEPHALEXIN MONOHYDRATE 500 MG CAP PO ONE (19:30)
[2018-02-21 19:46] VITALS: BP 115/70; PULSE 83; RESP 16; TEMP 98.1; O2SAT 100
[2018-02-21] MEDS ORDERED: CEPH-460 PO (19:56)
== END 2018-02-21 20:27 | disposition home or self-care (01) ==
LOC: PHED 18:23
DX: O23.42 Unspecified infection of urinary tract in pregnancy, second trimester (principal); B96.20 Unspecified Escherichia coli [E. coli] as the cause of diseases classified elsewhere; O99.512 Diseases of the respiratory system complicating pregnancy, second trimester; J45.909 Unspecified asthma, uncomplicated; O99.89 Other specified diseases and conditions complicating pregnancy, childbirth and the puerperium; N80.9 Endometriosis, unspecified; O99.322 Drug use complicating pregnancy, second trimester; F12.90 Cannabis use, unspecified, uncomplicated; Z3A.15 15 weeks gestation of pregnancy
CPT/HCPCS: 81001; 87077; 87086; 87186; 87210; 87491; 87591; 96360; 99284; J7030

== ENCOUNTER 2018-08-12 13:05 | Inpatient (IN) ==
--- NOTE | 2018-08-12 14:13 | ED ---
History of Present Illness Primary Care Physician: No [facility] History of Present Illness: at 39 weeks 4 days, history of severe migraines, sent in from office for elevated BP of 138/94. She has history of severe migraines with scotoma previous to . She has had sinus surgery for this before. She has continued to have migraines with scotoma through the , but has not been able to take her regular migraine medications. She denies any right upper quadrant pain or decreased urination. No contractions, leakage of fluid, vaginal bleeding. OB history: Elevated BP over the last 3 weeks of , no medications used Hyperemesis of , persistingtreated with Diclegis Anemia of ; hemoglobin 9.8 GBS negative OB previous history: [id number] baby 8 pounds 9 ounces Miscarriage x1 PLUGGER history: Endometriosis Medical history: Migraines as in HPI- treated with regular Fioricet Surgical history: Surgery for severe migraines Meds: PNV Diclegis 2tabs All: NKDA Review of Systems All other systems reviewed negative except as stated in [facility]PI [facility] - History History Provided By: Patient - Surgical History Surgical History: Surgical History (Last Reviewed 06/28/18 @ 12:13 by Sally Cespedes) History of sinus surgery - Tobacco History Smoking Status: Former smoker - Alcohol History How Often Do You Have a Drink Containing Alcohol: Never - Substance Use History Substance History: No History of Abuse - Travel History History of Recent Travel: No Medications and Allergies Allergies Allergy/AdvReac Type Severity Reaction Status Date / Time No Known Allergies Allergy Unverified 06/28/18 11:55 Home Medications Medication Instructions Recorded Confirmed Type vit 49-unae-mmbtk-dha 1 tab PO DAILY 05/07/18 06/28/18 History [ + DHA] ondansetron HCl [Zofran] 4 mg PO Q6-8H PRN 06/28/18 06/28/18 History Exam Vital signs: Vital Signs 08/12/18 14:00 Pulse Rate 86 Blood Pressure 127/85 Narrative: FH: 40 FHR: baseline 150, category , +accels toco: no cxns on monitor SVE: closed in office today Results - Labs CBC & Chem 7: 08/12/18 14:32 08/12/18 14:32 Assessment and Plan - Diagnosis (1) 39 weeks gestation of Code(s): Z3A.39 - 39 weeks gestation of Status: Acute (2) Elevated blood pressure affecting in third trimester, antepartum Code(s): O16.3 - Unspecified maternal hypertension, third trimester Status: Acute Plan: at 39 weeks 4 days presents with persistently elevated BPs in 3rd trimester. - CBC, CMP, UA WNL - BP range 130-152/80-112 - Monitor BPs - Admit to L&D for induction - GBS negative - A+ - baseline anemia reviewed, f/u H&H Discharge Plan - Physicians Team Primary Care Provider: Primary Care Patrica Putnam Attending Provider: Jerrica Marsh - Rxs /Orders / Referrals /Forms Prescriptions: No Action ondansetron HCl [Zofran] 4 mg Tablet 4 mg PO Q6-8H PRN (Reason: Nausea) vit 69-yzba-mhlnc-dha [ + DHA] 28 mg iron- 975 mcg-200 mg Combo Pack 1 tab PO DAILY Referrals: Primary Care Patrica Putnam [Primary Care Provider] - See Instructions
[2018-08-12 15:01] LABS: Baso % (Auto) 0.5 % (0.0-2.0); Eos # (Auto) 0.1 th/mm3 (0.0-0.4); Eos % (Auto) 0.7 % (0.0-4.0); Hematocrit 32.5 % (35.0-46.0); Hemoglobin 10.6 gm/dL (11.6-15.3); Lymph # (Auto) 2.2 th/mm3 (1.0-4.8); Lymph % (Auto) 22.2 % (9.0-44.0); Mean Corpuscular HGB Conc 32.6 % (32.0-36.0); Mean Corpuscular Hemoglobin 28.2 pg (27.0-34.0); Mean Corpuscular Volume 86.5 fL (80.0-100.0); Mean Platelet Volume 10.1 fL (7.0-11.0); Mono # (Auto) 0.7 th/mm3 (0.0-0.9); Neut % (Auto) 69.6 % (16.0-70.0); Platelet Count 177 th/mm3 (150-450); Red Blood Count 3.76 mil/mm3 (4.00-5.30); White Blood Count 10.1 th/mm3 (4.0-11.0)
[2018-08-12 15:25] LABS: Alanine Aminotransferase 6 U/L (10-53); Albumin 2.8 g/dL (3.4-5.0); Anion Gap 11 meq/L (5-15); Aspartate Aminotransferase 14 U/L (15-37); Blood Urea Nitrogen 10 mg/dL (7-18); Calcium 7.9 mg/dL (8.5-10.1); Carbon Dioxide 25.2 meq/L (21.0-32.0); Chloride 106 meq/L (98-107); Glomerular Filtration Rate Greater Than 89 mL/min (>89); Glucose,Random 61 mg/dL (74-106); Potassium 4.2 meq/L (3.5-5.1); Sodium 142 meq/L (136-145)
[2018-08-12 15:27] LABS: Alkaline Phosphatase 136 U/L (45-117); Total Protein 7.3 g/dL (6.4-8.2)
[2018-08-12] MEDS ORDERED: Sodium Chlor 0.9% Inj 500 ML IV.SIG PRN (15:47)
[2018-08-12] MEDS ORDERED: Sod Chloride 0.9% Inj 1,000 ML IV.CONT PRN (15:47)
[2018-08-12] MEDS ORDERED: fentaNYL Citrate Inj 100 MCG/2 ML Ampul IV.PUSH PRN ×2 (15:47)
[2018-08-12] MEDS ORDERED: Naloxone Inj 0.4 MG/ML Vial IV.PUSH PRN (15:47)
[2018-08-12] MEDS ORDERED: Oxytocin 30 Units/500ml Premix 30 UNITS/500 ML BAG IV.SIG ONE (15:47)
[2018-08-12] MEDS ORDERED: Citric Acid/Sodium Citrate Liq 30 ML UDC PO SCH (16:00)
--- NOTE | 2018-08-12 16:25 | P.OBGPN ---
at 39 weeks 4 days, history of severe migraines, sent in from office for elevated BP of 138/94. She has history of severe migraines with scotoma previous to . She has had sinus surgery for this before. She has continued to have migraines with scotoma through the , but has not been able to take her regular migraine medications. She denies any right upper quadrant pain or decreased urination. No contractions, leakage of fluid, vaginal bleeding. OB history: Elevated BP over the last 3 weeks of , no medications used Hyperemesis of , persistingtreated with Diclegis Anemia of ; hemoglobin 9.8 GBS negative OB previous history: [id number] baby 8 pounds 9 ounces Miscarriage x1 RN TRAINING history: Endometriosis Medical history: Migraines as in HPI- treated with regular Fioricet Surgical history: Surgery for severe migraines Meds: PNV Diclegis 2tabs All: NKDA Review of Systems All other systems reviewed negative except as stated in HPI [facility] - History History Provided By: Patient - Surgical History Surgical History: Surgical History (Last Reviewed 06/28/18 @ 12:13 by Sally Cespedes) History of sinus surgery - Tobacco History Smoking Status: Former smoker - Alcohol History How Often Do You Have a Drink Containing Alcohol: Never - Substance Use History Substance History: No History of Abuse - Travel History History of Recent Travel: No Medications and Allergies Allergies Allergy/AdvReac Type Severity Reaction Status Date / Time No Known Allergies Allergy Unverified 06/28/18 11:55 Home Medications Medication Instructions Recorded Confirmed Type vit 10-zwqz-qpeqt-dha 1 tab PO DAILY 05/07/18 06/28/18 History [ + DHA] ondansetron HCl [Zofran] 4 mg PO Q6-8H PRN 06/28/18 06/28/18 History Exam Vital signs: Vital Signs 08/12/18 14:00 Pulse Rate 86 Blood Pressure 127/85 Narrative: FH: 40 FHR: baseline 150, category , +accels toco: no cxns on monitor SVE: closed in office today Results - Labs CBC & Chem 7: 08/12/18 14:32 08/12/18 14:32 Assessment and Plan - Diagnosis (1) 39 weeks gestation of Code(s): Z3A.39 - 39 weeks gestation of Status: Acute (2) Elevated blood pressure affecting in third trimester, antepartum Code(s): O16.3 - Unspecified maternal hypertension, third trimester Status: Acute Plan: at 39 weeks 4 days presents with persistently elevated BPs in 3rd trimester. - CBC, CMP, UA WNL - BP range 130-152/80-112 - Monitor BPs - Admit to L&D for induction - GBS negative - A+ - baseline anemia reviewed, f/u H&H
--- NOTE | 2018-08-12 16:38 | P.HPOB ---
Patient Name: Dana Kelly Date of : 81 Patient Status: Inpatient Attending Provider: Jerrica Marsh Date: 08/12/18 16:25 Initialization Date: 08/12/18 16:25 at 39 weeks 4 days, history of severe migraines, sent in from office for elevated BP of 138/94. She has history of severe migraines with scotoma previous to . She has had sinus surgery for this before. She has continued to have migraines with scotoma through the , but has not been able to take her regular migraine medications. She denies any right upper quadrant pain or decreased urination. No contractions, leakage of fluid, vaginal bleeding. OB history: Elevated BP over the last 3 weeks of , no medications used Hyperemesis of , persistingtreated with Diclegis Anemia of ; hemoglobin 9.8 GBS negative OB previous history: [id number] baby 8 pounds 9 ounces Miscarriage x1 INVENTORY REPRESENTATIVE history: Endometriosis Medical history: Migraines as in HPI- treated with regular Fioricet Surgical history: Surgery for severe migraines Meds: PNV Diclegis 2tabs All: NKDA Review of Systems All other systems reviewed negative except as stated in HPI [facility] - History History Provided By: Patient - Surgical History Surgical History: Surgical History (Last Reviewed 06/28/18 @ 12:13 by Sally Cespedes) History of sinus surgery - Tobacco History Smoking Status: Former smoker - Alcohol History How Often Do You Have a Drink Containing Alcohol: Never - Substance Use History Substance History: No History of Abuse - Travel History History of Recent Travel: No Medications and Allergies Allergies Allergy/AdvReac Type Severity Reaction Status Date / Time No Known Allergies Allergy Unverified 06/28/18 11:55 Home Medications Medication Instructions Recorded Confirmed Type vit 56-mszp-yjtbo-dha 1 tab PO DAILY 05/07/18 06/28/18 History [ + DHA] ondansetron HCl [Zofran] 4 mg PO Q6-8H PRN 06/28/18 06/28/18 History Exam Vital signs: Vital Signs 08/12/18 14:00 Pulse Rate 86 Blood Pressure 127/85 Narrative: FH: 40 FHR: baseline 150, category , +accels toco: no cxns on monitor SVE: closed in office today Results - Labs CBC & Chem 7: 08/12/18 14:32 08/12/18 14:32 Assessment and Plan - Diagnosis (1) 39 weeks gestation of Code(s): Z3A.39 - 39 weeks gestation of Status: Acute (2) Elevated blood pressure affecting in third trimester, antepartum Code(s): O16.3 - Unspecified maternal hypertension, third trimester Status: Acute Plan: at 39 weeks 4 days presents with persistently elevated BPs in 3rd trimester. - CBC, CMP, UA WNL - BP range 130-152/80-112 - Monitor BPs - Admit to L&D for induction ( pt agrees and accepts) - GBS negative - A+ - baseline anemia reviewed, f/u H&H -no benefit in prolonging the
[2018-08-12] MEDS: Acetaminophen 325 MG Tablet PO PRN (18:29)
[2018-08-12 18:53] LABS: Bacteria,Urine Occasional /hpf; Bilirubin,Urine Negative (Negative); Clarity,Urine Clear (Clear); Color,Urine Yellow (Yellw/Straw); Glucose,Urine (UA) Negative (Negative); Leukocyte Esterase,Urine Negative (Negative); Mucus,Urine Few /lpf (Occasional); Nitrite,Urine Negative (Negative); Specific Gravity,Urine 1.012 (1.002-1.035); Squamous Epithelial Cell,Urine 1 /hpf (0-5)
[2018-08-12 18:58] LABS: Amphetamine Urine With Conf Neg (Neg); Benzodiazepine Urine With Conf Neg (Neg)
[2018-08-13] MEDS ORDERED: fentaNYL 2MCG-Bupiv 0.125% Epi 150 ML EPIDURAL ONE (01:35)
[2018-08-13] MEDS ORDERED: Lidocaaine 1.5%/Epinephrine 1:200,000 PF Inj 5 ML Amp ONE (01:47)
[2018-08-13] MEDS ORDERED: Lidocaine PF 1% Inj 5 ML Vial ONE (01:48)
[2018-08-13] MEDS ORDERED: fentaNYL 2MCG-Bupiv 0.125% Epi 150 ML EPIDURAL PRN (02:27)
[2018-08-13] MEDS ORDERED: fentaNYL Citrate Inj 100 MCG/2 ML Ampul EPIDURAL ONE (02:27)
[2018-08-13] MEDS ORDERED: Lidocaine 1% Inj 50 ML Vial ONE (03:16)
[2018-08-13] MEDS ORDERED: Oxytocin 30 Units/500ml Premix 30 UNITS/500 ML BAG ONE (03:18)
[2018-08-13] MEDS ORDERED: Acetaminophen 325 MG Tablet PO PRN (03:43)
[2018-08-13] MEDS ORDERED: Bisacodyl 10 MG Supp RECTAL PRN (03:43)
[2018-08-13] MEDS ORDERED: Witch Hazel 50%/Glyderin 12.5% 40 Pad Jar RECTAL PRN (03:43)
[2018-08-13] MEDS ORDERED: Naloxone Inj 0.4 MG/ML Vial IV.PUSH PRN (03:43)
[2018-08-13] MEDS ORDERED: Benzocaine 20% Top Spray 60 ML Can TOPICAL PRN (03:43)
[2018-08-13] MEDS ORDERED: Oxytocin 30 Units/500ml Premix 30 UNITS/500 ML BAG IV.CONT PRN (03:43)
[2018-08-13] MEDS ORDERED: Zolpidem Tartrate 5 MG Tablet PO PRN (03:43)
--- NOTE | 2018-08-13 03:47 | P.OBDELI ---
Patient Started Active Labor: No Medical Induction of Labor: Yes Artificial Rupture of Membrane: Yes Anesthesia: Epidural Episiotomy: none Vaginal Delivery: Normal Presentation: Occiput anterior Nuchal Cord: None Delayed Cord Clamping (45 sec): Yes Placenta: Spontaneous delivery, Not intact, Uterus explored + Laceration: None Estimated blood loss (mL): 50 Infant: Male Additional Information: pt residential treatment counselor regarding + THC and
[2018-08-13 08:20] VITALS: O2SAT 97
[2018-08-13] MEDS: Senna/Docusate Sodium 8.6/50 MG Tablet PO SCH ×2 (08:35→22:01)
[2018-08-13] MEDS ORDERED: Diphtheria/Tetanus/Pertussis Vaccine Inj 0.5 ML Syringe IM ONE (16:00)
[2018-08-13] MEDS ORDERED: Measles/Mumps/Rubella Vaccine Inj 0.5 ML Vial SQ ONE (16:00)
[2018-08-13] MEDS ORDERED: Influenza (Quadrivalent) Vaccine 0.5 ML Syringe IM ONE (17:45)
--- NOTE | 2018-08-14 09:24 | P.PNOB ---
Subjective Post day: 1 Interval history: Patient is a 33-year-old delivered at 39 weeks and 4 days. Patient is day 1 after IVD due to elevated blood pressures. Of note, patient had anemia of with hemoglobin at 9.8. Patient's pain is well- controlled. Patient reports eating and drinking without any nausea or vomiting. Patient reports minimal bleeding. Patient has passed gas and bowel movements. Patient is walking without lower extremity pain or shortness of breath. Patient reports desire for contraception but is not sure what method but does not want hormonal contraception. She may consider IUD. Objective Vital Signs/I&O: Vital Signs 08/13/18 12:00 08/13/18 15:58 08/13/18 19:12 Temperature 98.6 F 98.3 F Pulse Rate 93 H 96 H 73 Respiratory Rate 18 16 17 Blood Pressure 144/69 H 148/93 H 147/89 H 08/14/18 04:20 08/14/18 08:00 Temperature 98.0 F Pulse Rate 72 74 Respiratory Rate 18 20 Blood Pressure 111/74 139/82 Result Diagrams: 08/12/18 14:32 08/12/18 14:32 Objective Remarks: GENERAL: Well-nourished, well-developed patient. CARDIOVASCULAR: Regular rate and rhythm without murmurs, gallops, or rubs. RESPIRATORY: Breath sounds equal bilaterally. No accessory muscle use. ABDOMEN/GI: Abdomen soft, non-tender. Fundus: Firm, non-tender at umbilicus. GENITOURINARY: Light to moderate bleeding. EXTREMITIES: No cyanosis or edema, non-tender, without signs of DVT. Medications and IVs: Active Medications Acetaminophen (Tylenol) 650 mg PO Q4H PRN PRN Reason: HEADACHE Last Admin: 08/12/18 18:29 Dose: 650 mg Acetaminophen (Tylenol) 650 mg PO Q4H PRN PRN Reason: PAIN SCALE 1 TO 2 Al Hydroxide/Mg Hydroxide (Milk Of Magnesia Liq) 30 ml PO Q12H PRN PRN Reason: Mild Constipation Benzocaine (Americaine 20% Top [place]) 1 spray TOPICAL Q4H PRN PRN Reason: For Perineum Discomfort Last Admin: 08/13/18 08:35 Dose: 1 spray Bisacodyl (Dulcolax Supp) 10 mg RECTAL DAILY PRN PRN Reason: SEVERE CONSITIPATION Citric Acid/Sodium Citrate (Sodium Citrate/Citric Acid Liq) 30 ml PO R[facility] Stop: 08/16/18 15:59 Fentanyl Citrate (Fentanyl Inj) 50 mcg IV.PUSH Q1H PRN PRN Reason: Pain Scale 3 - 5 Fentanyl Citrate (Fentanyl Inj) 100 mcg IV.PUSH Q1H PRN PRN Reason: PAIN SCALE 6 TO 10 Last Admin: 08/13/18 00:09 Dose: 100 mcg Lactated Ringer's (Lr 1000 Ml Inj) 1,000 mls @ 3,000 mls/hr IV.SIG UNSCH PRN PRN Reason: compromise or epidural Sodium Chloride (Ns Inj) 500 mls @ 1,000 mls/hr IV.SIG UNSCH PRN PRN Reason: SEE LABEL COMMENTS Sodium Chloride (Ns Inj) 1,000 mls @ 100 mls/hr IV.CONT .Q10H PRN PRN Reason: SEE LABEL COMMENTS Fentanyl/Bupivacaine/Sodium Chlor (Fentanyl 2 Mcg-Bupiv 0.125% Epi) 150 mls @ 13 mls/hr EPIDURAL PRN PRN PRN Reason: for Labor Pain Last Admin: 08/13/18 02:54 Dose: 13 mls/hr Oxytocin (Pitocin 30 Units/Ns 500 Ml Premix) 30 units in 500 mls @ 100 mls/hr IV.CONT UNSCH PRN PRN Reason: Heavy bleeding Ibuprofen (Motrin) 800 mg PO Q8H PRN PRN Reason: For Cramping Last Admin: 08/14/18 05:52 Dose: 800 mg Lactulose (Lactulose Liq) 30 ml PO DAILY PRN PRN Reason: SEVERE CONSITIPATION Lidocaine HCl (Xylocaine 1% Inj) 0.1 ml I-DERMAL PRN PRN PRN Reason: For IV start Stop: 08/15/18 15:46 Lidocaine HCl (Xylocaine 1% Inj) 10 ml INFILTRATN PRN PRN PRN Reason: For episiotomy repair Stop: 08/14/18 15:46 Mineral Oil (Muri-Lube Oil) 10 ml TOPICAL PRN PRN PRN Reason: PRN perineal massage Naloxone HCl (Narcan Inj) 0.1 mg IV.PUSH Q2M PRN PRN Reason: for opiate reversal Naloxone HCl (Narcan Inj) 0.1 mg IV.PUSH Q2M PRN PRN Reason: for opiate reversal Ondansetron HCl (Zofran Inj) 4 mg IV.PUSH Q6H PRN PRN Reason: NAUSEA OR VOMITING Last Admin: 08/12/18 20:38 Dose: 4 mg Ondansetron HCl (Zofran Odt) 4 mg PO Q6H PRN PRN Reason: NAUSEA OR VOMITING Senna/Docusate Sodium (Dede-Colace) 1 tab PO BID [facility] Last Admin: 08/13/18 22:01 Dose: Not Given Sennosides (Senokot) 17.2 mg PO Q12H PRN PRN Reason: Moderate Constipation Sodium Chloride (Ns Flush) 2 ml IV.FLUSH BID [facility] Last Admin: 08/13/18 22:01 Dose: Not Given Sodium Chloride (Ns Flush) 2 ml IV.FLUSH PRN PRN PRN Reason: FLUSH AFTER USING IV ACCESS Witch Izabella/Glycerin (Tucks Pads) 1 applicatio RECTAL QID PRN PRN Reason: HEMORRHOIDS Last Admin: 08/13/18 08:35 Dose: 1 applicatio Zolpidem Tartrate (Ambien) 5 mg PO HS PRN PRN Reason: SLEEP Assessment and Plan - Diagnosis (1) Normal course Code(s): Z39.2 - Encounter for routine follow-up Status: Acute - Plan Patient is a 33-year-old delivered at 39 weeks and 4 days. Patient is day 1 after IVD due to elevated blood pressures. Of note, patient had anemia of with hemoglobin at 9.8. Patient was counseled to do 6 weeks of pelvic rest. Patient was counseled to follow up in 6 weeks. Patient requested follow-up and contraception. --AF VSS- last recorded BP was 111/74 --Continue routine care --Motrin when necessary for pain --Encourage OOB --Pelvic rest for 6 weeks will need follow-up appointment at that time. --Contraception: Patient may consider IUD at her follow up visit. --Anticipate discharge this afternoon or tomorrow depending on baby's discharge from the pediatric team
[2018-08-14] MEDS: Senna/Docusate Sodium 8.6/50 MG Tablet PO SCH ×2 (09:25→20:24)
[2018-08-14] MEDS ORDERED: Betamethasone Sod Phos/Acetate Inj 30 MG/5 ML Vial IM ONE (11:00)
[2018-08-15] MEDS: Acetaminophen 325 MG Tablet PO PRN (00:49)
[2018-08-15 08:43] VITALS: BP 133/93; PULSE 92; RESP 20; TEMP 98
--- NOTE | 2018-08-15 09:42 | P.PNOB ---
Subjective Post day: 2 Interval history: Patient is a 33-year-old delivered at 39 weeks and 4 days. Patient is day 2 after IVD due to elevated blood pressures. Of note, patient had anemia of with hemoglobin at 9.8. Patient's has had increased pain overnight. She reports lower back pain and abdominal pain. Patient reports nausea but no vomiting. Patient reports minimal bleeding. Patient has passed gas and bowel movements. Patient is walking without lower extremity pain or shortness of breath. Patient reports desire for contraception but is not sure what method but does not want hormonal contraception. She may consider IUD. Objective Vital Signs/I&O: Vital Signs 08/14/18 20:00 08/15/18 08:00 Temperature 98.4 F 98.0 F Pulse Rate 85 92 H Respiratory Rate 18 20 Blood Pressure 132/90 133/93 H Intake & Output 08/14/18 08/15/18 08/15/18 18:59 06:59 18:59 Weight 2.665 kg Result Diagrams: 08/12/18 14:32 08/12/18 14:32 Objective Remarks: GENERAL: Well-nourished, well-developed patient. CARDIOVASCULAR: Regular rate and rhythm without murmurs, gallops, or rubs. RESPIRATORY: Breath sounds equal bilaterally. No accessory muscle use. ABDOMEN/GI: Abdomen soft, tender. Fundus: Firm, tender at umbilicus. GENITOURINARY: Light to moderate bleeding. No foul smelling lochia. EXTREMITIES: No cyanosis or edema, non-tender, without signs of DVT. Medications and IVs: Active Medications Acetaminophen (Tylenol) 650 mg PO Q4H PRN PRN Reason: HEADACHE Last Admin: 08/15/18 00:49 Dose: 650 mg Acetaminophen (Tylenol) 650 mg PO Q4H PRN PRN Reason: PAIN SCALE 1 TO 2 Al Hydroxide/Mg Hydroxide (Milk Of Magnesia Liq) 30 ml PO Q12H PRN PRN Reason: Mild Constipation Benzocaine (Americaine 20% Top [place]) 1 spray TOPICAL Q4H PRN PRN Reason: For Perineum Discomfort Last Admin: 08/13/18 08:35 Dose: 1 spray Bisacodyl (Dulcolax Supp) 10 mg RECTAL DAILY PRN PRN Reason: SEVERE CONSITIPATION Citric Acid/Sodium Citrate (Sodium Citrate/Citric Acid Liq) 30 ml PO [facility] Stop: 08/16/18 15:59 Fentanyl Citrate (Fentanyl Inj) 50 mcg IV.PUSH Q1H PRN PRN Reason: Pain Scale 3 - 5 Fentanyl Citrate (Fentanyl Inj) 100 mcg IV.PUSH Q1H PRN PRN Reason: PAIN SCALE 6 TO 10 Last Admin: 08/13/18 00:09 Dose: 100 mcg Lactated Ringer's (Lr 1000 Ml Inj) 1,000 mls @ 3,000 mls/hr IV.SIG UNSCH PRN PRN Reason: compromise or epidural Sodium Chloride (Ns Inj) 500 mls @ 1,000 mls/hr IV.SIG UNSCH PRN PRN Reason: SEE LABEL COMMENTS Sodium Chloride (Ns Inj) 1,000 mls @ 100 mls/hr IV.CONT .Q10H PRN PRN Reason: SEE LABEL COMMENTS Fentanyl/Bupivacaine/Sodium Chlor (Fentanyl 2 Mcg-Bupiv 0.125% Epi) 150 mls @ 13 mls/hr EPIDURAL PRN PRN PRN Reason: for Labor Pain Last Admin: 08/13/18 02:54 Dose: 13 mls/hr Oxytocin (Pitocin 30 Units/Ns 500 Ml Premix) 30 units in 500 mls @ 100 mls/hr IV.CONT UNSCH PRN PRN Reason: Heavy bleeding Ibuprofen (Motrin) 800 mg PO Q8H PRN PRN Reason: For Cramping Last Admin: 08/15/18 08:28 Dose: 800 mg Lactulose (Lactulose Liq) 30 ml PO DAILY PRN PRN Reason: SEVERE CONSITIPATION Lidocaine HCl (Xylocaine 1% Inj) 0.1 ml I-DERMAL PRN PRN PRN Reason: For IV start Stop: 08/15/18 15:46 Mineral Oil (Muri-Lube Oil) 10 ml TOPICAL PRN PRN PRN Reason: PRN perineal massage Naloxone HCl (Narcan Inj) 0.1 mg IV.PUSH Q2M PRN PRN Reason: for opiate reversal Naloxone HCl (Narcan Inj) 0.1 mg IV.PUSH Q2M PRN PRN Reason: for opiate reversal Ondansetron HCl (Zofran Inj) 4 mg IV.PUSH Q6H PRN PRN Reason: NAUSEA OR VOMITING Last Admin: 08/12/18 20:38 Dose: 4 mg Ondansetron HCl (Zofran Odt) 4 mg PO Q6H PRN PRN Reason: NAUSEA OR VOMITING Last Admin: 08/15/18 08:28 Dose: 4 mg Senna/Docusate Sodium (Dede-Colace) 1 tab PO BID [facility] Last Admin: 08/14/18 20:24 Dose: Not Given Sennosides (Senokot) 17.2 mg PO Q12H PRN PRN Reason: Moderate Constipation Sodium Chloride (Ns Flush) 2 ml IV.FLUSH BID [facility] Last Admin: 08/14/18 09:25 Dose: Not Given Sodium Chloride (Ns Flush) 2 ml IV.FLUSH PRN PRN PRN Reason: FLUSH AFTER USING IV ACCESS Witch Izabella/Glycerin (Tucks Pads) 1 applicatio RECTAL QID PRN PRN Reason: HEMORRHOIDS Last Admin: 08/13/18 08:35 Dose: 1 applicatio Zolpidem Tartrate (Ambien) 5 mg PO HS PRN PRN Reason: SLEEP Assessment and Plan - Diagnosis (1) Normal course Code(s): Z39.2 - Encounter for routine follow-up Status: Acute - Plan Patient is a 33-year-old delivered at 39 weeks and 4 days. Patient is day 2 after IVD due to elevated blood pressures. Of note, patient had anemia of with hemoglobin at 9.8 and now a hemoglobin of 10.6. Patient was counseled to do 6 weeks of pelvic rest. Patient was counseled to follow up in 6 weeks. Patient requested follow-up and contraception. --AF VSS- last recorded BP was 133/93 --Continue routine care -- 1 time dose of Percocet --Motrin when necessary for pain --Encourage OOB --Pelvic rest for 6 weeks will need follow-up appointment at that time. --Contraception: Patient may consider IUD at her follow up visit. --Anticipate discharge today
== END 2018-08-15 14:56 | disposition home or self-care (01) ==
LOC: HOBED 13:05 → H2E 16:01 → H1EA 08-13 05:11
PROVIDERS: ADMIT Obstetrics & Gynecology; ATTEND Obstetrics & Gynecology